=== PATIENT | female | born 2000 | race Caucasian/White ===

== ENCOUNTER → 2021-02-16 13:12 | Outpatient (CLI) | payer OTHER, SELFPAY ==
[2021-02-16 15:16] LABS: Hematocrit 37.8 % (37-47); Hemoglobin 12.8 g/dL (12.0-15.0); Mean Corp Hgb Conc 33.9 g/dL (32-36); Mean Corpuscular Hgb 30.5 pg (27.0-32.0); Mean Corpuscular Volume 90.2 fL (81-99); Mean Platelet Vol. 9.6 fl (6.2-12.0); Platelet Count 282 K/mm3 (150-450); RBC Distribution Width CV 11.9 % (11.6-14.6); RBC Distribution Width SD 38.8 fl (35.1-43.9); Red Blood Count 4.19 M/mm3 (4.2-5.4); White Blood Count 9.7 K/mm3 (4.4-11.0)
[2021-02-16 16:00] LABS: Estradiol 46.6 pg/mL; Follicle Stimulating Hormone 5.4 mIU/mL; Prolactin 12.3 ng/mL; Thyroid Stim Hormone (TSH) 1.27 uIU/mL (0.358-3.74)
== END ==
PROVIDERS: PCP Family Medicine; Referring Provider Family Medicine; Visit Provider Family Medicine
DX: N93.8 Other specified abnormal uterine and vaginal bleeding (principal)
CPT/HCPCS: 36415; 82627; 82670; 83001; 83002; 84146; 84403; 84443; 85027; 82626

== ENCOUNTER → 2022-07-06 | Outpatient (CLI) | payer OTHER, SELFPAY ==
[2022-07-06 18:08] LABS: Anion Gap 9 (5-15); BUN 19 mg/dL (7-18); BUN/Creat Ratio 24.1 RATIO (10-20); Calcium,Total 8.7 mg/dL (8.5-10.1); Chloride 108 mmol/L (98-107); Creatinine, Serum 0.79 mg/dL (0.55-1.02); EST Glomerular Filtration Rate 97 mL/min (>60); Est Glom Filt Rate - Afr Amer 118 mL/min (>60); Ferritin 20 ng/mL (8-252); Glucose 85 mg/dL (74-106); Iron 117 ug/dL (50-170); Potassium 3.6 mmol/L (3.5-5.1); Sodium Level 142 mmol/L (136-145); Thyroid Stim Hormone (TSH) 0.81 uIU/mL (0.358-3.74)
[2022-07-06 18:24] LABS: Absolute Lymphocyte Count 1.71 X10^3/uL (0.83-4.51); Absolute Neutrophil Count 6.2 X10^3/uL (2.0-7.7); Basophil# 0.03 X10^3/uL; Basophil% 0.4 % (0-1); Eosinophil# 0.08 X10^3/uL; Hematocrit 39.4 % (37-47); Lymphocyte # 1.71 X10^3/ul (0.83-4.51); Lymphocyte % 20.3 % (19-41); Mean Corpuscular Hgb 30.5 pg (27.0-32.0); Mean Corpuscular Volume 92.5 fL (81-99); Mean Platelet Vol. 9.8 fl (6.2-12.0); Monocyte# 0.41 X10^3/uL; Monocyte% 4.9 % (0-10); NRBC Flagged by Analyzer 0.2 % (0-5); Neutrophil # 6.15 X10^3/uL (2.7-7.7); Neutrophil % 72.9 % (47-70); Platelet Count 269 K/mm3 (150-450); RBC Distribution Width CV 12.5 % (11.6-14.6); RBC Distribution Width SD 42.3 fl (35.1-43.9); Red Blood Count 4.26 M/mm3 (4.2-5.4); White Blood Count 8.4 K/mm3 (4.4-11.0)
== END | disposition home or self-care (01) ==
LOC: MFPLAB 13:51
PROVIDERS: PCP Family Medicine; Referring Provider Family Medicine; Visit Provider Family Medicine
DX: R68.89 Other general symptoms and signs (principal)
CPT/HCPCS: 36415; 80048; 82728; 83540; 84443; 85025

== ENCOUNTER 2024-08-30 01:07 | Inpatient (IN) | payer BC, SELFPAY ==
[2024-08-30] VITALS (16 sets, daily range): BP systolic 123–140; BP diastolic 60–113; PULSE 65–130; RESP 16; TEMP 36.6–37.1; O2SAT 99; BMI 28.1
[2024-08-30] MEDS: LACTATED RINGERS 500 ML 999 ML IV (01:20)
[2024-08-30] MEDS: Lactated Ringers 1,000 ML 200 ML IV (01:20)
[2024-08-30] MEDS: Penicillin G Pot 5,000,000 UNITS in 0.9% Normal Saline (100mL MB+) 100 ML 150 UNITS IV (01:27)
[2024-08-30 01:35] LABS: Absolute Lymphocyte Count 1.64 X10^3/uL (0.83-4.51); Absolute Neutrophil Count 17.6 X10^3/uL (2.0-7.7); Basophil# 0.04 X10^3/uL; Basophil% 0.2 % (0-1); Eosinophil# 0.01 X10^3/uL; Hematocrit 35.7 % (37-47); Hemoglobin 12.9 g/dL (12.0-15.0); Lymphocyte # 1.64 X10^3/ul (0.83-4.51); Lymphocyte % 8.1 % (19-41); Mean Corp Hgb Conc 36.1 g/dL (32-36); Mean Corpuscular Hgb 32.7 pg (27.0-32.0); Mean Corpuscular Volume 90.6 fL (81-99); Mean Platelet Vol. 9.7 fl (6.2-12.0); Monocyte# 0.88 X10^3/uL; Monocyte% 4.3 % (0-10); NRBC Flagged by Analyzer 0 % (0-5); Neutrophil # 17.61 X10^3/uL (2.7-7.7); Neutrophil % 86.6 % (47-70); Platelet Count 222 K/mm3 (150-450); RBC Distribution Width CV 12.4 % (11.6-14.6); RBC Distribution Width SD 40.8 fl (35.1-43.9); Red Blood Count 3.94 M/mm3 (4.2-5.4); White Blood Count 20.4 K/mm3 (4.4-11.0)
[2024-08-30 02:00] LABS: Syphilis Antibodies Nonreactive (Nonreactive)
[2024-08-30] MEDS: Oxytocin 15 Units/NS 250ml 15 UNITS/250 ML IV.SOLN 334 UNITS IV (04:10)
[2024-08-30] MEDS: Oxytocin 15 Units/NS 250ml 15 UNITS/250 ML IV.SOLN 83 UNITS IV (04:55)
--- NOTE | 2024-08-30 07:57 | PCM.HP.OB ---
HPI - General General Date of Admission: 08/30/24 Date of Service: 08/30/24 Chief Complaint: contractions HPI Narrative MAIDA PERALTA, is a 23 F who presents in active labor. Maternal Data Information Final JODIE: [birth year] Gestational age: 39+4 PFSH PFSH Medical History no medical history Home Medications ?Medication ?Instructions ?Recorded ?Last Taken ?Type vit no.133-ferrous tab PO DAILY 08/30/24 08/29/24 History fumarate 28 mg-folic acid 800 mcg tablet () Allergy/AdvReac Type Severity Reaction Status Date / Time No Known Allergies Allergy Verified 08/30/24 01:17 Surgical History no surgical history Social History Smoking Status: Never smoker History 1 Elective abortions Hx Para 0 Spontaneous abortions Hx # Term Pregnancies Ectopic pregnancies Hx # Pregnancies Multiple births # of living children NST FHR Rate Baby A Baseline: 150 Variability:: Moderate Accelerations:: 15 x 15 Decelerations:: None FHR Category:: Category I ROS Constitutional Constitutional: Denies fatigue, fever(s) or malaise Eyes Eyes: Denies change in vision ENT HEENT: Denies dizziness or headache(s) Cardiovascular Cardiovascular: Denies chest pain, dyspnea or lightheadedness Respiratory/Chest Respiratory/Chest: Denies cough or dyspnea Gastrointestinal Gastrointestinal: Denies change in bowel habits Genitourinary Genitourinary: Denies burning urination or genital lesions Integumentary Integumentary: Denies rash Neurologic Neurologic: Denies confusion, dizziness, headache(s), numbness or weakness Vital Signs Vital Signs Vital Signs: 08/30/24 00:53 08/30/24 00:53 08/30/24 00:58 Pulse Rate 112 H Blood Pressure 134/90 H BP Systolic 134 BP Diastolic 90 Pulse Ox 99 08/30/24 00:58 08/30/24 04:33 08/30/24 04:33 Pulse Rate 90 96 Blood Pressure 131/85 H BP Systolic 131 BP Diastolic 85 Pulse Ox 08/30/24 04:48 08/30/24 04:48 08/30/24 05:03 Pulse Rate 85 Blood Pressure 126/90 H 136/60 H BP Systolic 126 136 BP Diastolic 90 60 Pulse Ox 08/30/24 05:03 08/30/24 05:18 08/30/24 05:18 Pulse Rate 75 67 Blood Pressure 135/61 H BP Systolic 135 BP Diastolic 61 Pulse Ox 08/30/24 05:33 08/30/24 05:33 08/30/24 05:48 Pulse Rate 71 Blood Pressure 140/63 H 139/71 H BP Systolic 140 139 BP Diastolic 63 71 Pulse Ox 08/30/24 06:03 08/30/24 06:03 08/30/24 06:18 Pulse Rate 88 Blood Pressure 140/81 H 124/75 H BP Systolic 140 124 BP Diastolic 81 75 Pulse Ox 08/30/24 06:18 08/30/24 06:33 08/30/24 06:33 Pulse Rate 65 88 Blood Pressure 127/70 H BP Systolic 127 BP Diastolic 70 Pulse Ox 08/30/24 07:56 08/30/24 07:56 Pulse Rate 89 Blood Pressure 123/73 H BP Systolic 123 BP Diastolic 73 Pulse Ox Weight Weight: 79.038 kg Body Mass Index (BMI) 28.1 Physical Exam Const alert and no apparent distress General Appearance: cooperative HEENT normocephalic Resp normal respiratory effort Cardio regular rate GI soft to palpation GI Narrative: gravid, nontender, appropriate for gestational age Extremity no calf tenderness General Extremity: edema Skin no wounds Rashes: No rashes noted Psych activity/motor behavior normal Labs Labs Labs: Blood Type O POSITIVE Antibody Screen NEGATIVE Hct 35.7 % (37-47) L Hgb 12.9 g/dL (12.0-15.0) Syphilis Total Ab Nonreactive (Nonreactive) Assessment & Plan (1) 39 weeks gestation of : (2) Normal labor and delivery: PLAN: Plan Routine labor management
--- NOTE | 2024-08-30 08:03 | EX.PCM.OBVAG ---
Assessment & Plan (1) (spontaneous vaginal delivery): Maternal Data Information Final JODIE: [birth year] Gestational age: 39+4 Vaginal Delivery Maternal Presentation Maternal Presentation: Active Labor Vaginal Delivery Information Procedure Performed: Spontaneous Vaginal Delivery Surgeon/Practitioner: Vidhya Pozo Date of Procedure: 08/30/24 Pre-Procedure Diagnosis: Spontaneous labor Post-Procedure Diagnosis: Type of anesthesia: None Estimated Blood Loss: 100 cc Time of Delivery: 04:07 Findings Description of procedure: Presented in active labor at 5 cm. Progressed quickly to complete. Is GBS positive and received one dose of PCN. She began pushing and pushed for 45 minutes delivering in hands and knees. The anterior and posterior shoulders delivered easily followed by the rest of the body. The cried upon delivery and was placed skin to skin. The cord was clamped and cut. Cord blood was collected. The placenta delivered with gentle traction. A First degree laceration was repaired with 2-0 vicryl after the administration of 1% lidocaine. All sponge, lap and need counts were correct. Presentation: Vertex and MULU Amniotic Membrane Rupture Type: Spontaneous Amniotic Fluid Description: Clear Placental Delivery Description: Spontaneous Placenta Disposition: [facility] Specimen collected: Yes Description of specimen(s) removed: cord blood Cord Vessel Description: 3 Vessels Cord Entanglement: None A Gender: Female (1 minute): 8 (5 minute): 9 Delayed Cord Clamping: Yes Commissioning Agent veterinary microbiologist: No Post Vaginal Deli Medications given after delivery: IV Pitocin Episiotomy Description: None Laceration: Midline and 1st degree Complication Complications: No
[2024-08-31 00:55] VITALS: BP 135/74; PULSE 79; RESP 16; TEMP 36.9; O2SAT 99
[2024-08-31] MEDS: Benzocaine/Lanolin/Aloe Vera 85 GM Spray 1 SPRAY TOPICAL (01:14)
--- NOTE | 2024-08-31 07:58 | PCM.PN.OB ---
Subjective Subjective Doing well. Ambulating and voiding without difficulty. Mild lochia. Breast feeding. Objective Data Objective Data Vital Signs: Vital Signs Temp Pulse Resp BP Pulse Ox O2 Del Method 98.5 F 79 16 135/74 H 99 Room Air 08/31/24 00:55 08/31/24 00:55 08/31/24 00:55 08/31/24 00:55 08/31/24 00:55 08/31/24 00:55 Oxygen Delivery Method Room Air Weight: 79.038 kg Body Mass Index (BMI) 28.1 Intake & Output: Intake and Output for Last 24 Hours 08/29/24 08/30/24 08/31/24 23:59 23:59 23:59 Intake Total 1661.67 / 1661.67 Output Total 800 / 800 Balance 861.67 / 861.67 Lab / Micro Data 08/30/24 01:20 ROS Constitutional Constitutional: Denies headache(s) Cardiovascular Cardiovascular: Denies chest pain or dyspnea Gastrointestinal Gastrointestinal: Denies nausea or vomiting Genitourinary Genitourinary: Denies dysuria Physical Exam Const alert, oriented x3 and no apparent distress General Appearance: cooperative and comfortable Eyes PERRL and EOMs intact bilaterally Resp normal respiratory effort GI soft to palpation and non-tender Uterus Palpation: uterus fundus firm ( below umbilicus) Extremity normal to inspection and full ROM Neuro oriented x3 and CN's II-XII intact bilaterally Psych mental status grossly normal Assessment & Plan (1) (spontaneous vaginal delivery): PLAN: Plan Discharge at 36 hours
--- NOTE | 2024-08-31 08:33 | PCM.DC.SUM ---
Providers Date of Admission: 08/30/24 Date of Discharge: 08/31/24 Primary Care Physician: Wagner Bhakta MD Reason For Visit: R/O LABOR Diagnosis Discharge Diagnosis (1) (spontaneous vaginal delivery): Status: Acute Code(s): O80 - Encounter for full-term uncomplicated delivery Plan Discharge at 36 hours Medications at Discharge Home Medications vit no.133-ferrous fumarate 28 mg-folic acid 800 mcg tablet () tab PO DAILY 08/30/24 Hospital Course Operations None Procedures None Summary of Care Provided Minutes Spent on Discharge: 20 Hospital Course: Admitted in active labor. . Uncomplicated Physical Exam Const alert General Appearance: cooperative GI GI Narrative: soft, moderate distention, fundus firm, appropriately tender. Abdominal bandage clean dry and intact Weight / BMI Weight Weight: 79.038 kg Body Mass Index (BMI) 28.1 ABG / Lab / Microbiology Data 08/30/24 01:20 D/C Instructions May resume sexual activity in: 6 weeks DC O2, CPAP, BIPAP Needs Home O2 Discharge instructions: No Please Follow Up With: Donita Rasmussen MD When: Follow up with our office in 1-2 and 6 weeks or as needed. [phone] Meaningful Use Info Meaningful Use Meaningful Use Diagnoses (Choose all that apply): None applicable Ischemic Stroke Statin Dosing Therapy Reference: STATIN DOSE THERAPY REFERENCE: * Patients > 75 years receive moderate or high dose statin therapy. * Patients 75 years or YOUNGER should receive HIGH intensity statin dose unless contraindicated. You will be required to document reason for non-treatment if statin daily dose does not meet guidelines. HIGH DOSE STATIN THERAPY DAILY Atorvastatin > than or = to 40 mg Rosuvastatin > than or = to 20 mg Amlodipine + Atorvastatin > than or = to 2.5/40 mg Ezetimibe + Simvastatin 10/80 mg Simvastatin 80mg Discharge Plan Admission Admit Date/Time: 08/30/24 01:07 Primary Reason for Your Visit: labor Attending Provider: Vidhya Pozo Primary Care Provider: Wagner Bhakta Discharge Orders/Prescriptions Prescriptions: Continued 28-800 mg-mcg tablet PO DAILY Referrals / Follow Up: Wagner Bhakta MD [Primary Care Provider] - Disposition Disposition (needs filled in before D/C Order can be placed): Home, Self Care
[2024-08-31] MEDS: Ibuprofen 600 MG Tablet PO (09:01)
[2024-08-31 09:02] VITALS: BP 125/81; PULSE 80; RESP 16; TEMP 36.6
== END 2024-08-31 14:10 | disposition home or self-care (01) | DRG 807 ==
LOC: WPOUT 01:08 → WP 01:08
PROVIDERS: Admitting Provider Obstetrics & Gynecology; PCP Family Medicine; Visit Provider Obstetrics & Gynecology
DX: O99.824 Streptococcus B carrier state complicating childbirth (principal); Z37.0 Single live birth; O70.0 First degree perineal laceration during delivery; Z3A.39 39 weeks gestation of pregnancy
CPT/HCPCS: 59025; 59050; 99221; G0378